=== PATIENT | male | born 1935 | race Caucasian/White ===

== ENCOUNTER → 2016-08-30 | Outpatient (CLI) | payer MEDICARE, OTHER ==
[~2016-08-30] MED LIST: ADVIL200 MG PO; AMOXICILLIN500 MG PO; ASPIR-LOW81 MG PO; ASPIRIN LO-DOSE81 MG PO; BENADRYL25 MG PO; CEPASTAT1 LOZ PO; COLACE100 MG PO; CORDARONE,PACE200 MG PO; COREG25 MG PO; CUBICIN (NON-F500 MG IV; DULCOLAX10 MG R; FAMOTIDINE20 MG PO; FEOSOL325 MG PO; FLONASE 50 MCG/16 GM NOSE; K-TAB ER20 MEQ PO; KEPPRA500 MG PO; LASIX40 MG PO; LIPITOR10 MG PO; LOVENOX 3030 MG/0.3 SUB-Q; MAXIPIME IV; MILK OF MA400 MG/5 M; MILK OF MA400 MG/5 M PO; MUCOMYST PO; NIACIN500 M1 PO; NORCO 5-325 MG1 TAB PO; NORVASC2.5 MG PO; NORVASC5 MG PO; OMEPRAZOLE20 MG PO; PERCOCET 5-3251 EACH PO; PLAVIX75 MG PO; PRILOSEC20 MG PO; PRINIVIL (ZESTRI5 MG PO; PROAIR RESPICL90 MCG INH; PROVENTIL OR V6.7 GM INH; SODIUM BICARBO650 MG PO; THERAGRAN-M1 TAB PO; TYLENOL EXTRA500 MG PO; TYLENOL325 MG PO; VITAMIN B-121000 MCG PO; VITAMIN C1000 MG PO; VITAMIN D-32000 UNI1 PO
[2016-08-30 15:05] LABS: ALBUMIN 3.5 gm/dL (3.5-5.0); ALK PHOS 101 IU/L (33-138); ALT 18 IU/L (12-78); AST 15 IU/L (10-40); TOTAL BILIRUBIN 0.2 mg/dL (0.0-1.5); TOTAL PROTEIN 6.8 g/dL (6.0-8.4)
== END | disposition disaster alternative care site (69) ==
LOC: LCNC 14:44
PROVIDERS: Internal Medicine Interventional Cardiology
DX: Z51.81 Encounter for therapeutic drug level monitoring (principal); Z79.899 Other long term (current) drug therapy